=== PATIENT | female | born 1960 | race Caucasian/White ===

== ENCOUNTER → 2023-08-16 09:20 | Outpatient (BNVA) | payer BC, MEDICAID, SELFPAY | PROVIDERS: PCP Nurse Practitioner Family; Referring Provider Nurse Practitioner Family; Visit Provider Orthopaedic Surgery | DX: M54.2 Cervicalgia (principal) | CPT/HCPCS: 72050 ==

== ENCOUNTER → 2023-09-06 11:13 | Outpatient (BNVA) | payer BC, MEDICAID, SELFPAY | PROVIDERS: PCP Nurse Practitioner Family; Visit Provider Orthopaedic Surgery | DX: M47.22 Other spondylosis with radiculopathy, cervical region (principal); Z79.899 Other long term (current) drug therapy | CPT/HCPCS: 36415; 80053; 81003; 85025 ==

== ENCOUNTER → 2023-09-14 11:11 | Outpatient (BNVA) | payer BC, MEDICAID, SELFPAY | PROVIDERS: PCP Nurse Practitioner Family; Visit Provider Family Medicine | DX: Z01.818 Encounter for other preprocedural examination (principal) | CPT/HCPCS: 93005 ==

== ENCOUNTER 2023-10-01 08:42 | Day surgery (SDC) | payer BC, MEDICAID, SELFPAY ==
[2023-10-01] VITALS (14 sets, daily range): BP systolic 107–153; BP diastolic 72–92; PULSE 79–101; RESP 16–18; TEMP 36.1–36.6; O2SAT 92–100; BMI 26.9
[2023-10-01] MEDS: sodium chloride 0.9% 1,000 ML 30 ML IV (09:39)
[2023-10-01 09:45] LABS: Glucose Point of Care 92 mg/dL (70-110)
--- NOTE | 2023-10-01 10:14 | P.ANESASSM_ITS ---
Pre-Anesthetic Assessment Height/Weight: Height 1.73 m Weight 80.286 kg Temp Pulse Resp BP Pulse Ox O2 Del Method 97.8 F 80 17 107/79 96 Room Air 10/01/23 09:10 10/01/23 09:10 10/01/23 09:10 10/01/23 09:10 10/01/23 09:10 10/01/23 09:10 Preop Diagnosis: Cervical spondylosis with radiculopathy Operation Date: 10/01/23 10:25 Proposed Procedures p Anterior Cervical Discectomy & Fusion ACDF w/ Anterior Interbody Fusion w/ Cage w/ Instrumentation w/ Allograft w/ Navigation(Not Applicable) - Owen Green, DO Familial anesthetic complications: mask causes claustrophobia Was Beta Danika taken within 24 hours: N/A Was Clonidine taken within 24 hours: N/A Last intake: Intake Last Liquid Date 09/30/23 Last Liquid Time 23:45 Last Solid Date 09/30/23 Last Solid Time 20:00 Social No alcohol and No tobacco Exam alert, oriented x 3, clear to auscultation bilaterally and regular rate & rhythm Airway Mallampati: Class II Dentition: loose CV/HEM Hypertension, Myocardial Infarction (stent) and Peripheral Vascular Disease Metabolic Diabetes Mellitus and Thyroid Disease Anesthetic Plan ASA status: 3 Anesthesia: General Risk of > 500 ml blood loss (7ml/kg in children): No Medications/Allergies Home Medications Medication Instructions Recorded Confirmed Last Taken Type albuterol (refill) 90 90 mcg inhalation DAILY PRN 08/16/23 09/28/23 Unknown History mcg/actuation aerosol inhaler Shortness Of Breath baclofen 20 mg tablet 20 mg PO DAILY 08/16/23 09/28/23 09/27/23 History bempedoic acid 180 mg tablet 180 mg PO DAILY 08/16/23 09/28/23 10/01/23 History (Nexletol) biotin 10,000 mcg capsule 10,000 mcg PO DAILY 08/16/23 09/28/23 09/30/23 History cholecalciferol (vitamin D3) 25 5,000 unit PO DAILY 08/16/23 09/28/23 09/30/23 History mcg (1,000 unit) capsule dulaglutide 1.5 mg/0.5 mL 1.5 mg SUBCUT .WEEKLY 08/16/23 09/28/23 09/23/23 History subcutaneous pen injector (Trulicity) ezetimibe 10 mg tablet (Zetia) 10 mg PO DAILY 08/16/23 09/28/23 09/28/23 History fluoxetine 20 mg capsule 20 mg PO DAILY 08/16/23 09/28/23 10/01/23 History metoprolol succ 50 1 tab PO DAILY 08/16/23 09/28/23 09/30/23 History mg-hydrochlorothiazide 12.5 mg tablet,ext.rel 24 hr ondansetron 4 mg disintegrating 4 mg PO Q8H PRN Nausea And Vomiting 08/16/23 09/28/23 Unknown History tablet pantoprazole 40 mg tablet,delayed 40 mg PO .QOTHERDAY 08/16/23 09/28/23 09/28/23 History release rivaroxaban 2.5 mg tablet (Xarelto) 2.5 mg PO BID 08/16/23 09/28/23 09/28/23 History thyroid (pork) 60 mg tablet See Rx Instructions .Route .COMPLEX 08/16/23 09/28/23 10/01/23 History trazodone 150 mg tablet 150 mg PO DAILY 08/16/23 09/28/23 09/30/23 History alprazolam 0.25 mg tablet 0.25 mg PO DAILY PRN Anxiety 09/14/23 10/01/23 10/01/23 History furosemide 20 mg tablet 20 mg PO DAILY PRN Edema 09/14/23 10/01/23 09/30/23 History pregabalin 75 mg capsule 75 mg PO DAILY 09/14/23 09/28/23 09/30/23 History aspirin 81 mg tablet 81 mg PO DAILY 09/28/23 09/28/23 09/25/23 History metformin 1,000 mg tablet 1,000 mg PO DAILY 10/01/23 10/01/23 09/30/23 History Allergies Allergy/AdvReac Type Severity Reaction Status Date / Time acetaminophen Allergy ADR-Halluci Verified 09/28/23 10:30 [From Yandy jimenez (hydrocodone-acetamin)] doxycycline Allergy ulcers Verified 09/28/23 10:30 after 17 days on a 21 day script gabapentin Allergy intolerance Verified 09/28/23 10:30 hydrocodone Allergy ADR-Halluci Verified 09/28/23 10:30 [From Yandy jimenez (hydrocodone-acetamin)] insulin aspart Allergy swelling Verified 09/28/23 10:30 insulin glargine Allergy ALGY-Hives Verified 09/28/23 10:30 levothyroxine Allergy intolerance Verified 09/28/23 10:30 linezolid Allergy ulcers in Verified 09/28/23 10:30 mouth Penicillins Allergy doesn't Verified 09/28/23 10:30 work propranolol Allergy ALGY-Hives Verified 09/28/23 10:30 topiramate Allergy swelling Verified 09/28/23 10:30 umeclidinium Allergy ulcers Verified 09/28/23 10:30 vancomycin Allergy ALGY-Redness Verified 10/01/23 09:41 of Skin chlorhexidine gluconate Allergy ALGY-Rash Uncoded 09/28/23 10:30 Current Medications Generic Name Dose Route Start Last Admin Trade Name Freq PRN Reason Stop Dose Admin Sodium Chloride 1,000 mls @ 30 mls/hr 10/01/23 09:00 10/01/23 09:39 Sodium Chloride 0.9% IV 10/02/23 08:59 30 mls/hr .Q24H DONG Administration PFSH Anesthesia Medical History History of diabetes mellitus, type II Hx of primary hypertension Hx of myocardial infarction Arthritis Post-operative hypothyroidism Benign heart murmur PVD (peripheral vascular disease) Hyperlipidemia Iliac artery stenosis, bilateral Tibial artery occlusion, right Blue toe syndrome of right lower extremity Bilateral carotid artery disease Facet arthritis of cervical region Myofascial pain syndrome, cervical Esophageal dysphagia Major depressive disorder Basal cell carcinoma Anemia History of underactive thyroid Social History Quit status (tobacco/nicotine): has quit using Year quit tobacco: 1 year Former quit date comment: september 2022 Second hand smoke exposure: No Alcohol intake: current Alcohol intake frequency: other Alcohol type: other Additional social history: pt has smoked 1 to 1/2 packs of cigarettes for 40 years Data Anesthesia 10/01/23 09:36 Cardiac Studies: 2 No Data to Display
[2023-10-01 10:25] LABS: Alanine Aminotransferase 18 U/L (0-33); Albumin Level 3.7 g/dL (3.5-5.2); Alkaline Phosphatase 58 U/L (35-105); Anion Gap 14.9 (5-19); Aspartate Amino Transferase 20 U/L (0-32); Blood Urea Nitrogen 20 mg/dL (8-23); Carbon Dioxide 23 mmol/L (22-29); Chloride 107 mmol/L (98-107); Globulin 3.2 g/dL (1.3-4.6); Glomerular Filtration Rate 50.5 mL/min (90-130); Glucose 93 mg/dL (65-115); Osmolality Calculated 292 mOsm/kg (285-295); Potassium 4.9 mmol/L (3.5-5.1); Sodium 140 mmol/L (136-145); Total Bilirubin 0.4 mg/dL (0.15-1.2); Total Protein 6.9 g/dL (6.6-8.7)
--- NOTE | 2023-10-01 12:00 | W.PM.OPSUD ---
Surgery/Procedure H&P Update DATE OF PROCEDURE: October 01, 2023 DATE H&P PERFORMED: 09/14/23 H&P UPDATE INFORMATION: I have reviewed H&P completed within last 30 days, I have examined patient prior to procedure and No changes to prior documentation PREOP DIAGNOSIS: Cervical spondylosis with radiculopathy PLANNED PROCEDURE: Operation Date: 10/01/23 10:25 Proposed Procedures p Anterior Cervical Discectomy & Fusion ACDF w/ Anterior Interbody Fusion w/ Cage w/ Instrumentation w/ Allograft w/ Navigation(Not Applicable) - Owen Green DO
[2023-10-01] MEDS: clindamycin 600 MG/50 ML PREMIX 100 MG IV (12:20)
[2023-10-01] MEDS: lidocaine-epi 1% 20 mL INJ INJECTION (13:15)
[2023-10-01 13:58] LABS: Glucose Point of Care 103 mg/dL (70-110)
[2023-10-01] MEDS: HYDROmorphone 1 mg/mL INJ 1 mL 0.5 MG IVP (13:58)
--- NOTE | 2023-10-01 14:03 | PM.OP ---
Operative Report Date of procedure: October 01, 2023 Pre-op diagnosis: Cervical spondylosis with radiculopathy Post-op diagnosis: same Procedure done: 1. Anterior diskectomy C3/4 2. Insertion of cage C3/4 3. Instrumentation with anterior plate from C3-C4 4. Use of allograft Surgeon: Owen Green DO Estimated blood loss (mL): 20 Procedure: 1. Anterior diskectomy C3/4 2. Insertion of cage C3/4 3. Instrumentation with anterior plate from C3-C4 4. Use of allograft The patient was taken to the operating room, where he underwent general endotracheal anesthesia without complications. He was then positioned supine on the operating table, and all areas of impingement were well padded. The arms were carefully padded and tucked at his sides. A roll was placed between the shoulder blades.. An x-ray was done to determine the appropriate level for the skin incision. The entire neck was then sterilely prepped and draped in the usual fashion. Neuromonitoring was attached prior to prepping. A transverse skin incision was made and carried down to the platysma muscle. This was then split in line with its fibers. Blunt dissection was carried down medial to the carotid sheath and lateral to the trachea and esophagus until the anterior cervical spine was visualized. A needle was placed into a disc and an x-ray was done to determine its location. The longus colli muscles were then elevated bilaterally with the electrocautery unit. Self-retaining retractors were placed deep to the longus colli muscle. Attention was brought to the C3-4 level that was confirmed on x-ray. A caspar pin was placed into the C3 vertebrae and the C4 vertebrae. The disk space was then distracted. The microscope was then brought in. A radical anterior discectomies were performed at C 3/4. This included complete removal of the anterior annulus, nucleus, and posterior annulus. The posterior longitudinal ligament was removed as were the posterior osteophytes. Foraminotomies were then accomplished bilaterally. This was done using a high speed abel, kerrison rongeurs and curretes Once all of this was accomplished, the curved currette was used to check for any residual compression. The central canal was wide open as were the foramen. A high-speed bur was used to remove the cartilaginous endplates above and below the interspace. Bleeding cancellous bone was exposed. The disc space were measured and appropriate size cage were placed sterilely onto the field. Allograft graft was packed into the cages. The cage was then placed and there was good juxtaposition against the bleeding decorticated surfaces and good distraction of each interspace. The [place] pins were removed. Bone wax was used to prevent any bleeding from occurring at the pin sites. The appropriate size anterior cervical locking plate was chosen and bent into gentle lordosis. Two screws were then placed into each of the vertebral bodies at C3 and C4. There was excellent purchase. A final x-ray was done confirming good position of the hardware and Cages. The locking screws were then applied, also with excellent purchase. Following a final copious irrigation, there was good hemostasis and no dural leaks. The carotid pulse was strong. The wounds were then closed in layers using 2-0 Vicryl suture for the platysma muscle, 2-0 Vicryl suture for the subcutaneous tissue, and 4-0 monocryl suture in a subcuticular skin closure. Glue was placed followed by application of a sterile dressing. The drain was hooked to bulb suction. A soft collar was applied. The patient was then carefully returned to the supine position on his hospital bed where he was reversed and extubated and taken to the recovery room having tolerated the procedure well.
--- NOTE | 2023-10-01 14:18 | XR_ITS ---
WS: [id number] C-ARM RADIOGRAPHS CERVICAL SPINE; 2 IMAGES HISTORY: OR PICS COMPARISON: None available. Intraoperative imaging during anterior cervical fusion at C3-4. There is an interbody spacer at C3-4. Patient is intubated. XR/XR cervical spine 3V* [id number] IMPRESSION: Intraoperative imaging during cervical fusion.
--- NOTE | 2023-10-01 15:25 | ANE.PACU2 ---
Inpatient post-anesthesia follow up: Airway intact: Yes Vital signs: Temperature 97.9 F Pulse Rate 85 Respiratory Rate 17 Blood Pressure 136/75 Pulse Oximetry 96 Oxygen Delivery Me thod Room Air Oxygen Flow Rate 6 Fraction of Inspir ed Oxygen Hydration adequate: Yes Nausea and vomiting: No Pain level: 1 Mental status: Baseline
== END 2023-10-01 15:25 | disposition home or self-care (01) ==
PROVIDERS: PCP Nurse Practitioner Family; Visit Provider Orthopaedic Surgery
PROC: 0RB30ZZ Excision of Cervical Vertebral Disc, Open Approach (ICD-10-PCS; CPT 22551; principal; 2023-10-01 10:25)
DX: M47.22 Other spondylosis with radiculopathy, cervical region (principal); I10 Essential (primary) hypertension; I25.2 Old myocardial infarction; Z95.5 Presence of coronary angioplasty implant and graft; E11.9 Type 2 diabetes mellitus without complications; Z79.82 Long term (current) use of aspirin; Z79.84 Long term (current) use of oral hypoglycemic drugs; Z87.891 Personal history of nicotine dependence
CPT/HCPCS: 20930; 22551; 22845; 22853; 36415; 36416; 72040; 76000; 80053; 82962; C1713; C1763; C9359; J0131; J0330; J1100; J1170; J1200; J2250; J2405; J2704; J3010; J3490; J7030

== ENCOUNTER 2023-10-05 16:43 | Emergency (ER) | payer BC, MEDICAID, SELFPAY ==
[2023-10-05 16:47] VITALS: BP 123/73; PULSE 79; RESP 16; TEMP 36.9; O2SAT 96; BMI 25.8
--- NOTE | 2023-10-05 18:29 | W.ED.NECK ---
HPI - Neck Pain/Injury General: Chief Complaint: General Medical Stated Complaint: trouble swallowing Time Seen by Provider: 10/05/23 18:22 Source: patient Mode of arrival: ambulatory Limitations: no limitations History of Present Illness: Patient is a 63-year-old female who presents to the ED today with a complaint of neck pain and dysphagia following an anterior approach cervical surgery by Dr. Green. Date of service was 09/30. Procedure performed was as follows: Procedure done: 1. Anterior diskectomy C3/4 2. Insertion of cage C3/4 3. Instrumentation with anterior plate from C3-C4 4. Use of allograft Patient states she is having trouble swallowing and feels like her food gets stuck. She is able to take her home medications one by one . She is able to swallow water. No fevers. Feels like her Steri-Strips are itchy and irritating her. MD complaint: neck pain Onset (ago): day(s) Severity: moderate Relieving factors: none Exacerbating factors: none Context: other (Recent surgery) Associated symptoms: Reports dysphagia Treatments prior to arrival: prescription analgesic Review of Systems Const: Denies: fever(s), chills, body aches, fatigue or malaise Card: Denies: chest pain Resp: Denies: dyspnea GI: Reports: dysphagia; Denies: abdominal pain, vomiting, hematemesis or heartburn Musc: Reports: neck pain Neuro: Denies: numbness in extremities, weakness in extremities or sensory changes [facility] ED PFSH: Medical History History of diabetes mellitus, type II Hx of primary hypertension Hx of myocardial infarction Arthritis Post-operative hypothyroidism Benign heart murmur PVD (peripheral vascular disease) Hyperlipidemia Iliac artery stenosis, bilateral Tibial artery occlusion, right Blue toe syndrome of right lower extremity Bilateral carotid artery disease Facet arthritis of cervical region Myofascial pain syndrome, cervical Esophageal dysphagia Major depressive disorder Basal cell carcinoma Anemia History of underactive thyroid Social History Quit status (tobacco/nicotine): has quit using Year quit tobacco: 1 year Former quit date comment: september 2022 Second hand smoke exposure: No Alcohol intake: current Alcohol intake frequency: other Alcohol type: other Additional social history: pt has smoked 1 to 1/2 packs of cigarettes for 40 years Physical Exam Const: COMMON NORMALS: no acute distress, average body habitus, no limitations, healthy appearing, alert and well nourished Neck/C-Spine: OTHER: ROM not performed secondary to recent surgery; surgical incision with intact steri-strips appears clean Resp: COMMON NORMALS: normal respiratory effort and clear to auscultation bilaterally AUSCULTATION: clear to auscultation bilaterally Cardio: COMMON NORMALS: regular rate and regular rhythm RATE: regular rate RHYTHM: regular rhythm Extremity: GENERAL: Yes normal exam except as noted Neuro: COMMON NORMALS: moves all extremities, no focal motor deficits and no sensory deficits noted SENSORIUM/ORIENTATION: Yes alert Course Vital Signs: Vital signs: Vital Signs Temperature 98.5 F 10/05/23 16:47 Pulse Rate 79 10/05/23 16:47 Respiratory Rate 16 10/05/23 16:47 Blood Pressure 123/73 10/05/23 16:47 Pulse Oximetry 96 10/05/23 16:47 Oxygen Delivery Me thod Room Air 10/05/23 16:47 MDM - Neck Pain/Injury Medical Decision Making Patient here with dysphagia following an anterior approach discectomy by Dr. Green approximately 4 days ago. Symptoms clinically sound normal for postoperative.. CT imaging was obtained to rule out other etiologies. CT of her neck showing postop changes. She was given IV dexamethasone here and I will place her on dexamethasone over the next couple of days at home to help with the edema. She was recommended to continue extremely soft food diet and liquids and can advance as tolerated. Recommend follow-up with Dr. Green as scheduled. Return to ED precautions given. Medical Records I reviewed the patient's medical records. Lab Data I reviewed the patient's lab results. 10/05/23 19:00 10/05/23 19:[address] 10/05/23 18:32 IMPRESSION: 1. Postoperative changes status post recent C3-C4 ACDF with prevertebral edema and unorganized fluid. Close surgical follow-up is recommended. Laboratory Results WBC 9.59 10^3/uL (3.29-11.43) 10/05/23 19:00 RBC 4.13 10^6/uL (3.85-5.65) 10/05/23 19:00 Hgb 11.30 g/dL (11.27-16.99) 10/05/23 19:00 Hct 35.4 % (36-47) L 10/05/23 19: MCV 85.7 fl (85-98) 10/05/23 19: MCH 27.4 pg (27-33) 10/05/23 19: MCHC 31.9 g/dL (30-55) 10/05/23 19:00 RDW 13.5 % (12.1-15.1) 10/05/23 19: Plt Count 232 10^3/cmm (157-399) 10/05/23 19: MPV 9.2 fL (7.4-10.4) 10/05/23 19:00 Neut % (Auto) 58.0 % 10/05/23 19: Lymph % (Auto) 30.7 % 10/05/23 19: Meigs % (Auto) 8.8 % 10/05/23 19:00 Eos % (Auto) 2.0 % 10/05/23 19: Baso % (Auto) 0.3 % 10/05/23 19: Neut # (Auto) 5.57 10^3/uL (1.8-7.7) 10/05/23 19:00 Lymph # (Auto) 2.9 10^3/uL (0.8-4.8) 10/05/23 19: Meigs # (Auto) 0.8 10^3/uL (0.2-0.9) 10/05/23 19:00 Eos # (Auto) 0.2 10^3/uL (0.0-0.8) 10/05/23 19:00 Baso # (Auto) 0.0 10^3/uL (0.0-0.1) 10/05/23 19:00 Nucleated RBC % (auto) 0 % 10/05/23 19: Nucleated RBCs # 0.0 /100WBC 10/05/23 19:00 Sodium 140 mmol/L (136-145) 10/05/23 19:00 Potassium 4.7 mmol/L (3.5-5.1) 10/05/23 19:00 Chloride 104 mmol/L (98-107) 10/05/23 19:00 Carbon Dioxide 24 mmol/L (22-29) 10/05/23 19:00 Anion Gap 16.7 (5-19) 10/05/23 19:00 BUN 19 mg/dL (8-23) 10/05/23 19:00 Creatinine 1.0 mg/dL (0.5-0.9) H 10/05/23 19:00 GFR Calculation 56.4 mL/min (90-130) L 10/05/23 19:00 Glucose 101 mg/dL (65-115) 10/05/23 19:00 Calculated Osmolality 292 mOsm/kg (285-295) 10/05/23 19:00 Calcium 9.0 mg/dL (8.5-10.5) 10/05/23 19:00 Total Bilirubin 0.7 mg/dL (0.15-1.2) 10/05/23 19:00 AST 19 U/L (0-32) 10/05/23 19:00 ALT 19 U/L (0-33) 10/05/23 19:00 Alkaline Phosphatase 73 U/L (35-105) 10/05/23 19:00 Total Protein 7.2 g/dL (6.6-8.7) 10/05/23 19:00 Albumin 3.9 g/dL (3.5-5.2) 10/05/23 19:00 Globulin 3.3 g/dL (1.3-4.6) 10/05/23 19:00 All radiology interpretation(s) finalized by discharge Discharge Plan Discharge Patient Disposition: Home Clinical Impression: Status post cervical discectomy Dysphagia Qualifiers: Dysphagia type: unspecified Qualified Code(s): R13.10 - Dysphagia, unspecified Condition: Stable Prescriptions: New dexamethasone 6 mg tablet 6 mg PO DAILY Qty: 4 0RF No Action furosemide 20 mg tablet 20 mg PO DAILY PRN (Reason: Edema) pregabalin 75 mg capsule 75 mg PO DAILY trazodone 150 mg tablet 150 mg PO DAILY baclofen 20 mg tablet 20 mg PO DAILY ondansetron 4 mg tablet,disintegrating 4 mg PO Q8H PRN (Reason: Nausea And Vomiting) Nexletol 180 mg tablet 180 mg PO DAILY Xarelto 2.5 mg tablet 2.5 mg PO BID thyroid (pork) 60 mg tablet See Rx Instructions .ROUTE .COMPLEX Rx Instructions: 90mg in the am and 60 mg in afternoon pantoprazole 40 mg tablet,delayed release (DR/EC) 40 mg PO .QOTHERDAY metoprolol webb-hydrochlorothiaz 50-12.5 mg tablet extended release 24 hr 1 tab PO DAILY fluoxetine 20 mg capsule 20 mg PO DAILY ezetimibe [Zetia] 10 mg tablet 10 mg PO DAILY Trulicity 1.5 mg/0.5 mL pen injector 1.5 mg SUBCUT .WEEKLY biotin 10,000 mcg capsule 10,000 mcg PO DAILY albuterol (refill) 90 mcg/actuation aerosol 90 mcg inhalation DAILY PRN (Reason: Shortness Of Breath) cholecalciferol (vitamin D3) 25 mcg (1,000 unit) capsule 5,000 unit PO DAILY alprazolam 0.25 mg tablet 0.25 mg PO DAILY PRN (Reason: Anxiety) aspirin 81 mg Tablet 81 mg PO DAILY Hold Instructions: Resume on 10/03/23. metformin 1,000 mg Tablet 1,000 mg PO DAILY oxycodone 5 mg tablet 5 mg PO Q4H PRN (Reason: pain) 7 Days Qty: 40 0RF Discharge Orders: Discharge ED (Routine); Ordered 10/05/23 Ordered By: Cristy Rios Referrals: Layla Valles [Primary Care Provider] - Coding Level of Care Code ED Director [employer] for Nathan Montejo
--- NOTE | 2023-10-05 18:32 | CTR_ITS ---
PROCEDURE INFORMATION: Exam: CT Neck With Contrast Exam date and time: 10/05/2023 7:07 PM Age: 63 years old Clinical indication: Dysphagia / difficulty swallowing; Prior surgery; Surgery date: 3-7 days post-operative; Surgery type: Anterior cervical fusion 10/01/2023; Patient HX: C/O worsening throat pain and dysphagia since anterior cervical fusion on 10/01/2023. ; Additional info: Recent cervical discectomy; Dysphagia/edema TECHNIQUE: Imaging protocol: Computed tomography of the neck with contrast. Radiation optimization: All CT scans at this facility use at least one of these dose optimization techniques: automated exposure control; mA and/or kV adjustment per patient size (includes targeted exams where dose is matched to clinical indication); or iterative reconstruction. Contrast material: OMNI 350; Contrast volume: 80 ml; Contrast route: INTRAVENOUS (IV); COMPARISON: MR cervical spin wo con* [id number] 03/28/2022 10:47 AM RADIATION DOSE METRICS: Total DLP (mGy-cm): 242.04 FINDINGS: Prevertebral and retropharyngeal spaces: Postsurgical changes compatible with recent C3-C4 ACDF without gross evidence of hardware complication. 1 mm anterolisthesis of C4 on C5. No evidence of fracture or subluxation of the cervical spine. There is extensive prevertebral and retropharyngeal edema without a discrete fluid collection. There is an approximately 1.5 cm focus of unorganized fluid in the right paramedian prevertebral soft tissues (for example, image 47 of series 11). Edema extends into the right lateral aspect of the neck along the lateral aspect of the thyroid cartilage. Pharynx: The nasopharynx, oropharynx and hypopharynx are grossly unremarkable. Larynx: The aryepiglottic folds, glottis and paraglottic soft tissues are grossly unremarkable. Salivary glands: The parotid and submandibular glands are unremarkable. Thyroid: Multiple clips in the thyroid bed suggesting prior thyroidectomy. Lymph nodes: No evidence of adenopathy. Trachea: The visualized upper airway is patent. Lungs: The visualized lung apices are clear. Vasculature: The origins of the great vessels are patent. The visualized aortic arch is unremarkable. The visualized carotid and vertebral arteries are grossly patent. There is moderate approximately 50% stenosis of the proximal left internal carotid artery secondary to densely calcified atherosclerotic plaque. The visualized internal jugular veins are patent without evidence of thrombosis. CT/CT neck w con* [id number] IMPRESSION: 1. Postoperative changes status post recent C3-C4 ACDF with prevertebral edema and unorganized fluid. Close surgical follow-up is recommended.
[2023-10-05] MEDS: iohexol 350 mg/mL 500 mL Btl (per mL) IV (19:07)
[2023-10-05 19:16] LABS: Basophils % 0.3 %; Eosinophils # 0.2 10^3/uL (0.0-0.8); Hematocrit 35.4 % (36-47); Lymphocytes # 2.9 10^3/uL (0.8-4.8); Lymphocytes % 30.7 %; Mean Corpuscular HGB Conc 31.9 g/dL (30-55); Mean Corpuscular Hemoglobin 27.4 pg (27-33); Mean Corpuscular Volume 85.7 fl (85-98); Mean Platelet Volume 9.2 fL (7.4-10.4); Monocytes # 0.8 10^3/uL (0.2-0.9); Monocytes % 8.8 %; Neutrophils # 5.57 10^3/uL (1.8-7.7); Nucleated Red Blood Cells % 0 %; Platelet Count 232 10^3/cmm (157-399); Red Blood Count 4.13 10^6/uL (3.85-5.65); Red Cell Distribution Width 13.5 % (12.1-15.1); White Blood Count 9.59 10^3/uL (3.29-11.43)
[2023-10-05 19:26] LABS: Alanine Aminotransferase 19 U/L (0-33); Albumin Level 3.9 g/dL (3.5-5.2); Alkaline Phosphatase 73 U/L (35-105); Anion Gap 16.7 (5-19); Aspartate Amino Transferase 19 U/L (0-32); Blood Urea Nitrogen 19 mg/dL (8-23); Carbon Dioxide 24 mmol/L (22-29); Chloride 104 mmol/L (98-107); Creatinine Clr Calc Pharmacy 64.5241; Globulin 3.3 g/dL (1.3-4.6); Glomerular Filtration Rate 56.4 mL/min (90-130); Glucose 101 mg/dL (65-115); Osmolality Calculated 292 mOsm/kg (285-295); Potassium 4.7 mmol/L (3.5-5.1); Sodium 140 mmol/L (136-145); Total Bilirubin 0.7 mg/dL (0.15-1.2); Total Protein 7.2 g/dL (6.6-8.7)
[2023-10-05] MEDS: dexamethasone 10 mg/mL INJ IVP (19:34)
[2023-10-05] MEDS: sodium chloride 0.9% 1,000 ML 999 ML IV (20:22)
[2023-10-05 21:36] VITALS: PULSE 80; RESP 16; O2SAT 96
== END 2023-10-05 21:18 | disposition home or self-care (01) ==
PROVIDERS: Emergency Provider Physician Assistant; PCP Nurse Practitioner Family
DX: R13.10 Dysphagia, unspecified (principal); Z98.890 Other specified postprocedural states; Z79.85 Long-term (current) use of injectable non-insulin antidiabetic drugs; Z79.82 Long term (current) use of aspirin; Z79.84 Long term (current) use of oral hypoglycemic drugs; Z87.891 Personal history of nicotine dependence; E11.9 Type 2 diabetes mellitus without complications; I25.2 Old myocardial infarction; E78.5 Hyperlipidemia, unspecified
CPT/HCPCS: 70491; 80053; 85025; 96374; 99285; J1100; J7030; Q9967

== ENCOUNTER → 2023-10-09 09:01 | Outpatient (BNVA) | payer BC, MEDICAID, SELFPAY | PROVIDERS: PCP Nurse Practitioner Family; Visit Provider Physician Assistant | DX: M25.511 Pain in right shoulder (principal); M25.512 Pain in left shoulder; M75.42 Impingement syndrome of left shoulder; M75.32 Calcific tendinitis of left shoulder | CPT/HCPCS: 73030 ==

== ENCOUNTER → 2023-10-30 13:21 | Outpatient (BNVA) | payer BC, MEDICAID, SELFPAY | PROVIDERS: PCP Nurse Practitioner Family; Visit Provider Orthopaedic Surgery | DX: Z98.1 Arthrodesis status (principal) | CPT/HCPCS: 72040 ==

== ENCOUNTER 2023-10-31 08:57 | Outpatient (CLI) | payer BC, MEDICAID, SELFPAY ==
--- NOTE | 2023-10-31 09:30 | MR_ITS ---
WS: [id number] MRI LEFT SHOULDER NONCONTRAST TECHNIQUE: Sagittal T2, coronal T1, T2 and proton density imaging. Axial gradient PDE imaging. CLINICAL INFORMATION: left rotator cuff impingement COMPARISON: None. FINDINGS: Some images are degraded by patient motion. Moderate arthritis AC joint with edema. Moderate downsloping acromion with impingement on the distal supraspinatus. Chronic thinning of the distal supraspinatus. Tendinopathy distal supraspinatus. Adrienne l infraspinatus. Normal teres minor. Normal subscapularis. Small biceps tendon appears intact within the bicipital groove. Advanced degenerative narrowing of th e glenohumeral articulation. Biceps labral anchor appears intact. Tiny intra-articular biceps tendon. No acute fractures. No bone marrow edema in the humerus or glenoid. MR/MR shoulder LT wo con* [id number] IMPRESSION: Images are somewhat limited due to motion 1. Moderate arthritis AC joint with mild downsloping acromion. Impingement dis leda supraspinatus. Chronic thinning of the supraspinatus with tendinopathy. 2. Rotator cuff is otherwise intact. 3. Small biceps tendon appears intact within the bicipital groove. Tiny intra- articular biceps tendon. 4. Advanced degenerative narrowing of the glenohumeral articulation. 5. No bone marrow edema in the humerus or glenoid.
== END 2023-10-31 08:58 | disposition home or self-care (01) ==
LOC: RAD 08:58
PROVIDERS: PCP Nurse Practitioner Family; Visit Provider Physician Assistant
DX: M75.42 Impingement syndrome of left shoulder (principal); M19.012 Primary osteoarthritis, left shoulder; M75.92 Shoulder lesion, unspecified, left shoulder
CPT/HCPCS: 73221

== ENCOUNTER → 2023-11-22 09:06 | Outpatient (BNVA) | payer BC, MEDICAID, SELFPAY | PROVIDERS: PCP Nurse Practitioner Family; Visit Provider Orthopaedic Surgery | DX: Z98.1 Arthrodesis status (principal); M47.22 Other spondylosis with radiculopathy, cervical region | CPT/HCPCS: 72040 ==

== ENCOUNTER 2023-11-28 05:34 | Day surgery (SDC) | payer BC, MEDICAID, SELFPAY ==
[2023-11-28] VITALS (12 sets, daily range): BP systolic 100–174; BP diastolic 60–125; PULSE 80–109; RESP 16–26; TEMP 36.2–36.6; O2SAT 94–99
[2023-11-28] MEDS: sodium chloride 0.9% 1,000 ML 30 ML IV (06:17)
[2023-11-28] MEDS: acetaminophen 1,000 MG/100 ML PIGGYBACK 400 MG IV (06:21)
[2023-11-28 06:27] LABS: Glucose Point of Care 87 mg/dL (70-110)
[2023-11-28] MEDS: ketorolac 30 mg/mL INJ IVP (06:27)
--- NOTE | 2023-11-28 06:53 | P.ANESASSM_ITS ---
Pre-Anesthetic Assessment Height/Weight: Height 1.73 m Weight 81.647 kg Temp Pulse Resp BP Pulse Ox O2 Del Method 97.7 F 80 16 156/60 96 Room Air 11/28/23 06:03 11/28/23 06:03 11/28/23 06:03 11/28/23 06:03 11/28/23 06:03 11/28/23 06:03 Operation Date: 11/28/23 07:00 Proposed Procedures p Shoulder Arthroscopy(Left) - Aldair Ag, DO s Subacromial Decompression(Left) - Aldair Hinds, DO s AC Joint Resection(Left) - Aldair Ag, DO Familial anesthetic complications: Sore throat and PONV post-op Was Beta Danika taken within 24 hours: N/A Was Clonidine taken within 24 hours: N/A Last intake: Intake Last Liquid Date 11/27/23 Last Liquid Time 23:45 Last Solid Date 11/27/23 Last Solid Time 19:00 Social Tobacco and No alcohol Exam alert, oriented x 3, clear to auscultation bilaterally and regular rate & rhythm Airway Mallampati: Class II Dentition: loose CV/HEM Coronary Artery Disease, Hypertension and Myocardial Infarction Metabolic Diabetes Mellitus and Thyroid Disease Neuropsych RAFFY Anesthetic Plan ASA status: 4 Anesthesia: General and Regional (specify below) Risk of > 500 ml blood loss (7ml/kg in children): No Medications/Allergies Home Medications Medication Instructions Recorded Confirmed Last Taken Type albuterol (refill) 90 90 mcg inhalation DAILY PRN 08/16/23 11/27/23 09/05/23 History mcg/actuation aerosol inhaler Shortness Of Breath baclofen 20 mg tablet 20 mg PO BEDTIME 08/16/23 11/28/23 11/27/23 History bempedoic acid 180 mg tablet 180 mg PO DAILY 08/16/23 11/27/23 11/27/23 History (Nexletol) biotin 10,000 mcg capsule 10,000 mcg PO BEDTIME 08/16/23 11/28/23 11/27/23 History cholecalciferol (vitamin D3) 25 5,000 unit PO BEDTIME 08/16/23 11/27/23 11/26/23 History mcg (1,000 unit) capsule ezetimibe 10 mg tablet (Zetia) 10 mg PO BEDTIME 08/16/23 11/27/23 11/26/23 History fluoxetine 20 mg capsule 40 mg PO DAILY 08/16/23 11/27/23 11/27/23 History ondansetron 4 mg disintegrating 4 mg PO Q8H PRN Nausea And Vomiting 08/16/23 11/27/23 Unknown History tablet rivaroxaban 2.5 mg tablet (Xarelto) 2.5 mg PO BID 08/16/23 11/27/23 11/25/23 11:30 History furosemide 20 mg tablet 20 mg PO DAILY PRN Edema 09/14/23 11/27/23 11/24/23 History naloxone 4 mg/actuation nasal 4 mg intranasal 2XD PRN opoid 10/09/23 11/27/23 Unknown History spray (Narcan) overdose dicyclomine 10 mg capsule 10 mg PO QID PRN stomach pain 10/30/23 11/27/23 11/11/23 History oxycodone 5 mg tablet 5 mg PO Q4H PRN pain 7 days #40 10/30/23 11/27/23 Unknown Rx tabs pantoprazole 40 mg tablet,delayed 20 mg PO BEDTIME 10/30/23 11/28/23 11/27/23 History release dulaglutide 0.75 mg/0.5 mL 0.75 mg SUBCUT DIRECTED 11/08/23 11/27/23 11/18/23 History subcutaneous pen injector (Trulicity) hydroxyzine HCl 10 mg tablet 10 mg PO QID anxiety 11/08/23 11/27/23 Unknown History metoprolol succinate 50 mg 50 mg PO BEDTIME BP 11/08/23 11/28/23 11/27/23 History tablet,extended release 24 hr pregabalin 100 mg capsule 100 mg PO BEDTIME 11/08/23 11/28/23 11/27/23 History blood sugar diagnostic (Blood #50 ea 11/19/23 11/22/23 Unknown Rx Glucose Test strips) blood-glucose meter (Blood Glucose #1 ea 11/19/23 11/22/23 Unknown Rx Monitoring kit) trazodone 150 mg tablet 100 mg PO BEDTIME PRN Insomnia 11/21/23 11/27/23 Unknown History thyroid (pork) 90 mg tablet 90 mg PO DAILY #30 tabs 11/22/23 11/27/23 11/27/23 Rx metformin 1,000 mg tablet 1,000 mg PO BEDTIME 11/27/23 11/27/23 11/26/23 History thyroid (pork) 30 mg tablet 30 mg PO QPM 11/27/23 11/28/23 11/27/23 History Allergies Allergy/AdvReac Type Severity Reaction Status Date / Time acetaminophen Allergy ADR-Halluci Verified 11/22/23 09:09 [From [employer] (hydrocodone-acetamin)] doxycycline Allergy ulcers Verified 11/22/23 09:09 after 17 days on a 21 day script gabapentin Allergy intolerance Verified 11/22/23 09:09 hydrocodone Allergy ADR-Halluci Verified 11/22/23 09:09 [From [employer] (hydrocodone-acetamin)] insulin aspart Allergy swelling Verified 11/22/23 09:09 insulin glargine Allergy ALGY-Hives Verified 11/22/23 09:09 levothyroxine Allergy intolerance Verified 11/22/23 09:09 linezolid Allergy ulcers in Verified 11/22/23 09:09 mouth Penicillins Allergy doesn't Verified 11/22/23 09:09 work propranolol Allergy ALGY-Hives Verified 11/22/23 09:09 topiramate Allergy swelling Verified 11/22/23 09:09 umeclidinium Allergy ulcers Verified 11/22/23 09:09 vancomycin Allergy ALGY-Redness Verified 11/22/23 09:09 of Skin chlorhexidine gluconate Allergy ALGY-Rash Uncoded 11/22/23 09:09 Current Medications Generic Name Dose Route Start Last Admin Trade Name Freq PRN Reason Stop Dose Admin Sodium Chloride 1,000 mls @ 30 mls/hr 11/28/23 05:45 11/28/23 06:17 Sodium Chloride 0.9% IV 11/29/23 05:44 30 mls/hr .Q24H DONG Administration PFSH Anesthesia Medical History Tobacco abuse History of diabetes mellitus, type II Hx of primary hypertension Hx of myocardial infarction Arthritis Post-operative hypothyroidism Benign heart murmur PVD (peripheral vascular disease) Hyperlipidemia Iliac artery stenosis, bilateral Tibial artery occlusion, right Blue toe syndrome of right lower extremity Bilateral carotid artery disease Facet arthritis of cervical region Myofascial pain syndrome, cervical Esophageal dysphagia Major depressive disorder Basal cell carcinoma Anemia History of underactive thyroid Family History Father CAD (coronary artery disease) Cancer Hypertension Sister Cancer Mother Diabetes Brother Diabetes Social History Smoking and tobacco/nicotine status: current every day tobacco/nicotine user Quit status (tobacco/nicotine): has quit using Year quit tobacco: 1 year Former quit date comment: september 2022 Second hand smoke exposure: No Alcohol intake: current Alcohol intake frequency: holidays/special occasions only Alcohol type: other Additional social history: pt has smoked 1 to 1/2 packs of cigarettes for 40 years Household members: none Housing: House Marital status: Legally Number of children: 2 Pets and animals: Yes Pets & animals: dog(s) Data Anesthesia Cardiac Studies: No Data to Display
--- NOTE | 2023-11-28 06:55 | ANES.PROC ---
Anesthesia Procedures Procedure/Date: 11/28/23 Nerve Block ^: Nerve Block 1: Main Anesthesia: general anesthesia Time Out Performed: Yes Consent: requested by attending/covering physician, from patient, from other, risks and benefits reviewed and patient agrees to proceed Nerve block location: interscalene (L) Anesthesia monitors applied: pulse oximetry, EKG, BP cuff and oxygen Nerve block position: semi sitting Anesthetic Used: ropivicaine 0.5% (16 c) and with decadron (4 mg) Ultrasound used to: recognize landmarks, visualize and ID brachial plexus, in supraclavicular region and visualize and ID interscalene groove Interscalene/Femoral BLK: 2 stimuplex 22 g needle used for position and inplane approach, visualize local anesthetic spread and no vascular puncture identified Patient Tolerated Procedure: well Complications: none
--- NOTE | 2023-11-28 06:56 | P.HPUD_ITS ---
Surgery/Procedure H&P Update DATE OF PROCEDURE: November 28, 2023 DATE H&P PERFORMED: 11/01/23 H&P UPDATE INFORMATION: I have reviewed H&P completed within last 30 days, I have examined patient prior to procedure and No changes to prior documentation CHANGES TO PREVIOUS DOCUMENTATION: Patient seen Dr. Dr. Green her spine surgeon who has okayed her to proceed with surgical intervention for the left shoulder given she is status post cervical s phoebe fusion. PREOP DIAGNOSIS: Left shoulder subacromial impingement and AC joint arthritis PRIMARY INDICATION FOR PROCEDURE: Left shoulder subacromial impingement and AC joint arthritis PLANNED PROCEDURE: Operation Date: 11/28/23 07:00 Proposed Procedures p Shoulder Arthroscopy(Left) - Aldair Luong, DO s Subacromial Decompression(Left) - Aldair Luong, s AC Joint Resection(Left) - Aldair Luong, DO
[2023-11-28] MEDS: ceFAZolin 2,000 MG in sodium chloride 0.9% (plus) 50 ML 100 MG IV (07:00)
--- NOTE | 2023-11-28 08:31 | W.PM.BPON ---
Date of Procedure: 11/27/2023 Surgeon: Aldair Luong DO [id number] Program[employer] Analyst(s): Honorio Luong PA-C Procedure(s) performed: . Left shoulder diagnostic and surgical arthroscopy with biceps tenodesis Left shoulder diagnostic and surgical arthroscopy with labral debridement Left shoulder diagnostic and surgical arthroscopy with subacromial decompression (acromioplasty and bursectomy) Left shoulder diagnostic and surgical arthroscopy with AC joint resection (distal clavicle excision) Findings of the procedure(s): Patient was found to have a unstable bicep tendon anchor and underwent bicep tenodesis, she was found to have an intact rotator cuff patient had circumferential fraying of the labrum and underwent debridement of this and then she subsequent underwent procedure as planned for a subacromial decompression and AC joint resection. Patient tolerated procedure without issues or complications taken to PACU stable condition Estimated blood loss: 5 mL Specimen(s) removed: None Post-operative diagnosis: Left shoulder biceps SLAP tear/unstable bicep tendon anchor, AC joint arthritis, labral fraying, subacromial impingement
--- NOTE | 2023-11-28 08:33 | P.OP_ITS ---
Operative Report Date of procedure: November 28, 2023 Surgeon: Aldair Luong DO [employer] Processor: Honorio Luong PA-C: PA was necessary for assistance in this case with shoulder positioning to execute the procedure, assistance with instrumentation, as well as implant fixation when necessary, assist with wound closure and dressing application. Procedure: Preoperative diagnosis: Left shoulder subacromial impingement and AC joint arthritis Post-op diagnosis:? Left shoulder biceps SLAP tear/unstable bicep tendon anchor, AC joint arthritis, labral fraying, subacromial impingement Procedure done: Left shoulder diagnostic and surgical arthroscopy with biceps tenodesis Left shoulder diagnostic and surgical arthroscopy with labral debridement Left shoulder diagnostic and surgical arthroscopy with subacromial decompression (acromioplasty and bursectomy) Left shoulder diagnostic and surgical arthroscopy with AC joint resection (distal clavicle excision) Surgeon: Aldair Luong DO Estimated blood loss: [ 5]mL IV fluids: See anesthesia record Implants: Arthrex 2.9 loop and tack biceps tenodesis implant system Complications: None Condition: stable Disposition: same day Brief History: Patient been seen and worked up in the outpatient setting for Left?shoulder?pain.? Pt had an MRI which showed findings below.? Patient's failed conservative treatment and has weakness.? We talked about treatment options far as nonoperative and operative intervention..? We talked about risk benefits complication alternatives surgical nonsurgical treatment options.? Understanding risk of surgery pt agrees to proceed with surgical intervention.? All questions have been answered at this time.? Patient elects proceed with surgery and consent obtained in office. MR/MR shoulder LT wo con* [id number] IMPRESSION: Images are somewhat limited due to motion 1. Moderate arthritis AC joint with mild downsloping acromion. Impingement distal supraspinatus. Chronic thinning of the supraspinatus with tendinopathy. 2. Rotator cuff is otherwise intact. 3. Small biceps tendon appears intact within the bicipital groove. Tiny intra- articular biceps tendon. 4. Advanced degenerative narrowing of the glenohumeral articulation. 5. No bone marrow edema in the humerus or glenoid. Procedure: Patient seen evaluated in the preoperative holding area.? Consent reviewed and signed with patient.? Once again reviewed patient's MRI results as well as? planned surgical intervention.? Correct extremity marked.? Patient seen evaluated by anesthesia department received regional anesthesia.? Once ready for surgery was taken back to the operative suite.? Patient then subsequently underwent anesthesia per the anesthesia department was transported onto the OR table.? Patient was then placed into a lateral decubitus position with a beanbag and was appropriately secured to the bed.? All bony prominences well-padded.? Patient then had the Left upper extremity was then prepped and draped in standard orthopedic fashion.? Patient received appropriate preoperative antibiotics.? Final timeout performed. The Left upper extremity was then held in hanging from traction utilizing sterile technique.? Next started with standard diagnostic and surgical arthroscopy with posterior portal position introduced arthroscope into the glenohumeral joint.? Visualized the glenohumeral joint I then introduced a spinal needle within the rotator cuff interval to confirm appropriate anterior portal placement.? Once this was confirmed I then made my small incision and then introduced my arthroscopic shaver into the glenohumeral joint.? After flushing the joint fluid, was clearly evident patient had biceps tendon tearing as well as Superior labral tear. Patient had appreciable unstable biceps anchor most pronounced in the superior labrum. Given there appears to be healthy intra-articular tendon plan was for an intra-articular biceps tenodesis at the superior portion as it enters the intertubercular groove. Thermal wand introduced into the rotator interval. I then release of the rotator interval to have appropriate visualization and the ability to perform biceps tenodesis. At this point I established a purple passport cannula which was introduced. Next I performed an Arthrex loop and tap biceps tenodesis. Passer was then made around the tendon luggage tag stitch around and then thru the tendon and around twice I then utilized a thermal wand to release the biceps tendon at the anchor to perform with tenotomy. I then loaded with suture onto an Arthrex 4.75 swivel lock suture anchor. A punch was then placed in appropriate position at the entry point into the intertubercular groove just superior to the subscapularis tendon. Punch was then introduced to the appropriate depth. The suture loaded on the swivel lock was then advanced held under appropriate tension and shoulder lock anchor was then advanced and had excellent fixation. Excess suture was then cut biceps tenodesis was complete. I then utilized a thermal wand to seal the edges of the superior labrum. Next I evaluated the subscapularis tendon which was intact and no evidence of tear. ?Next there was significant labral tearing at biceps anchor and circumferential.? ? I then subsequently utilized a a arthroscopic shaver and thermal wand to perform a labral debridement.? This point time I then visualized the glenohumeral joint.? The glenohumeral joint was found to have grade 1-2? chondromalacia throughout.? Infrapatellar pouch was free of loose bodies from viewing the posterior portal.? Next a visualized the rotator cuff superiorly and there was no tear with negative escape bubble sign. I utilized a spinal needle to chun this location.? ?This completed my work within the glenohumeral joint all fluid was suctioned free of the joint.? ?Next I reintroduced the arthroscope posteriorly.? And went to the subacromial space.? I established my lateral working portal.? Thermal wand was then introduced laterally and then I subsequently performed extensive bursectomy of the subacromial space.? Patient had a large anterior bone spur.? At this point time I proceeded with my AC joint resection thermal wand was used and track to the anterior edge of the acromion and then tracked all the way to the AC joint.? Once identified the AC joint this was very arthritic in nature.? Thermal wand was placed anteriorly to establish appropriate plane for AC joint resection.? Once appropriate margins and anterior inferior and anterior capsule was released I then introduced arthroscopic shaver and a bur and performed AC joint resection of both the acromion to cope plane at the AC joint and a distal clavicle r esection was then performed totaling 1 cm in size and was confirmed.? This completed my AC joint resection and I then introduced the arthroscopic shaver laterally while continuing to view posteriorly.? I then performed an acromioplasty to complete my subacromial decompression. Next I then subsequently evaluated the rotator cuff from the posterior portal as well as the lateral portal and there was no evidence of rotator cuff tear. ?Next I then introduced the arthroscopic shaver posteriorly to complete my subacromial decompression appropriate complaining all the way up to the lateral edge of the acromion.? This completed the surgery.? All fluid was suctioned from the?shoulder.? All instruments were removed.? The lateral incision was then closed with nylon stitches.? As well as the portal sites closed with portal nylon stitches.? Xeroform 4 x 4's ABD and tape was then applied to the Left?shoulder?and was placed into a?shoulder?abduction pillow sling for bicep tenodesis protocol.? Patient was then awakened from anesthesia and then taken back to PACU in stable condition.? Patient tolerated procedure without any issues. Disposition: Patient taken back in stable condition recovering well.? Dressings on in place clean dry and intact.? Will be nonweightbearing to the Left upper extremity.? Follow biceps tenodesis protocol.? Patient to follow-up with me in the office in 2 weeks.? Patient will receive appropriate discharge instruction as well as pain medication postoperatively.? All questions answered.? We will contact the office for any questions or concerns.
--- NOTE | 2023-11-28 09:03 | PM.PACU ---
PACU note Narrative: Patient is a 63-year-old female just over left shoulder arthroscopy. Patient transferred to PACU in stable condition. Pain is well controlled. shoulder Dressing on , dry and in place. Patient's operative arm is in a shoulder immobilizer. Patient's fingers are warm with good perfusion. Normal cap refill under 2 seconds. Unable to assess further range of motion, motor or sensory function due to residual anesthesia. Exam: unarousable Disposition: discharged
[2023-11-28] MEDS: ipratropium-albuterol 3 mL Neb ×2 (09:08→09:09)
--- NOTE | 2023-11-28 10:25 | ANE.PACU2 ---
Inpatient post-anesthesia follow up: Airway intact: Yes Vital signs: Temperature 98 F Pulse Rate 94 Respiratory Rate 18 Blood Pressure 112/70 Pulse Oximetry 95 Oxygen Delivery Me thod Room Air Oxygen Flow Rate 3 Fraction of Inspir ed Oxygen Hydration adequate: Yes Nausea and vomiting: No Pain level: 1 Mental status: Baseline
== END 2023-11-28 10:25 | disposition home or self-care (01) ==
PROVIDERS: PCP Nurse Practitioner Family; Visit Provider Student in an Organized Health Care Education/Training Program
PROC: (CPT 29805; principal; 2023-11-28 07:00)
PROC: (CPT 29826; 2023-11-28 07:00)
PROC: 0RSH0ZZ Reposition Left Acromioclavicular Joint, Open Approach (ICD-10-PCS; CPT 29822; 2023-11-28 07:00)
PROC: (CPT 23430; 2023-11-28 07:00)
DX: S43.432A Superior glenoid labrum lesion of left shoulder, initial encounter (principal); X58.XXXA Exposure to other specified factors, initial encounter; M19.012 Primary osteoarthritis, left shoulder; M75.42 Impingement syndrome of left shoulder; I25.10 Atherosclerotic heart disease of native coronary artery without angina pectoris; I10 Essential (primary) hypertension; I25.2 Old myocardial infarction; E11.9 Type 2 diabetes mellitus without complications; E78.5 Hyperlipidemia, unspecified; F17.210 Nicotine dependence, cigarettes, uncomplicated
CPT/HCPCS: 29822; 29824; 29826; 29828; 36416; 82962; C1713; J0131; J0690; J1100; J1885; J2405; J2704; J2710; J2795; J3010; J3490; J7030

== ENCOUNTER 2023-12-23 18:13 | Emergency (ER) | payer BC, MEDICAID, SELFPAY ==
[2023-12-23 18:41] VITALS: BP 124/69; PULSE 79; RESP 18; TEMP 36.8; O2SAT 97
[2023-12-23 18:46] VITALS: BP 120/72; PULSE 80; RESP 18
[2023-12-23 20:46] VITALS: PULSE 79; RESP 16; O2SAT 98
--- NOTE | 2023-12-23 21:22 | XRR_ITS ---
PROCEDURE INFORMATION: Exam: XR Left Shoulder Exam date and time: 12/23/2023 9:33 PM Age: 63 years old Clinical indication: Left; Prior surgery; Surgery date: <1 month; Patient HX: Lt shoulder pain; [place] pop'; Post op scope x 3 wk TECHNIQUE: Imaging protocol: Radiologic exam of the left shoulder. Views: 2 or more views. COMPARISON: MR shoulder LT wo con* [id number] 10/31/2023 9:35 AM FINDINGS: Bones/joints: No acute fractures or subluxations. Degenerative changes of the acromioclavicular and glenohumeral joint, better visualized on prior MRI October 31, 2023. Soft tissues: Normal. XR/XR shoulder LT min 2V* [id number] IMPRESSION: No acute fractures or subluxations. Degenerative changes of the acromioclavicular and glenohumeral joint, better visualized on prior MRI October 31, 2023.
[2023-12-23] MEDS: ketorolac 10 mg Tablet PO (21:56)
--- NOTE | 2023-12-23 22:17 | W.ED.EXTPRO ---
HPI - Extremity Problem General: Chief complaint: Extremity Injury, Upper Stated complaint: Left [place] Pain Time Seen by Provider: 12/23/23 21:04 History of Present Illness: 63-year-old female who is a little over 3 weeks out from left shoulder surgery. This was a biceps tenodesis and repair. She says that she felt a pop in the top of her shoulder after lifting boxes, and has pain to the top of the shoulder mainly. There is some mid arm pain as well. No significant numbness or tingling. No fever. PFSH ED PFSH: Medical History Tobacco abuse History of diabetes mellitus, type II Hx of primary hypertension Hx of myocardial infarction Arthritis Post-operative hypothyroidism Benign heart murmur PVD (peripheral vascular disease) Hyperlipidemia Iliac artery stenosis, bilateral Tibial artery occlusion, right Blue toe syndrome of right lower extremity Bilateral carotid artery disease Facet arthritis of cervical region Myofascial pain syndrome, cervical Esophageal dysphagia Major depressive disorder Basal cell carcinoma Anemia History of underactive thyroid Family History Father CAD (coronary artery disease) Cancer Hypertension Sister Cancer Mother Diabetes Brother Diabetes Social History Smoking and tobacco/nicotine status: current every day tobacco/nicotine user Quit status (tobacco/nicotine): has quit using Year quit tobacco: 1 year Former quit date comment: september 2022 Second hand smoke exposure: No Alcohol intake: current Alcohol intake frequency: holidays/special occasions only Alcohol type: other Additional social history: pt has smoked 1 to 1/2 packs of cigarettes for 40 years Household members: none Housing: House Marital status: Legally Number of children: 2 Pets and animals: Yes Pets & animals: dog(s) Physical Exam Const: COMMON NORMALS: no acute distress GENERAL APPEARANCE: cooperative; not ill appearing and not frail appearing HENMT: COMMON NORMALS: normocephalic, atraumatic and Normal external nose present HEAD & SCALP: normocephalic and atraumatic FACE & SINUS: normal facial exam and face symmetric NOSE: Normal external nose present Eye: COMMON NORMALS: Equal, round and reactive pupils present and EOMs intact bilaterally PUPIL: Yes Equal, round and reactive pupils present Neck/C-Spine: GENERAL: Yes trachea midline Chest: CHEST: Yes Symmetrical chest wall rise Resp: COMMON NORMALS: normal respiratory effort, No retractions, No use of accessory muscles and clear to auscultation bilaterally AUSCULTATION: clear to auscultation bilaterally Cardio: COMMON NORMALS: regular rate and regular rhythm RATE: regular rate RHYTHM: regular rhythm GI: COMMON NORMALS: Normal to inspection, nondistended, normoactive bowel sounds present Extremity: NARRATIVE EXTREMITY EXAM: Examination of the left upper extremity reveals tenderness over the acromioclavicular joint. There is no deformity. There is no other significant tenderness. No glenohumeral joint effusion is palpated. No evidence of definite biceps tendon rupture. There is pain with range of motion. Neuro: [place] COMA SCALE: document GCS findings [place] coma scale eye opening: Spontaneous [place] coma scale verbal response: Orientated [place] coma scale motor response: Obey commands [place] coma scale total score: 15 SENSORY EXAM: Yes extremities (intact) Psych: COMMON NORMALS: speech normal SPEECH: Yes normal speech Skin: COMMON NORMALS: no rashes or lesions noted GENERAL SKIN EXAM: no rashes or lesions noted Course Vital Signs: Vital signs: Vital Signs Temperature 98.2 F 12/23/23 18:41 Pulse Rate 79 12/23/23 20:46 Respiratory Rate 16 12/23/23 20:46 Blood Pressure 120/72 12/23/23 18:46 Pulse Oximetry 98 12/23/23 20:46 MDM - Extremity (Nontraumatic) Medical Decision Making X-ray is nonacute. There are some degenerative changes of the AC joint, and mild glenohumeral joint degenerative change. Will put her in a sling for comfort, and asked her to follow-up with orthopedics. Lab Data Radiology Impressions Shoulder X-Ray 12/23/23 21:22 IMPRESSION: No acute fractures or subluxations. Degenerative changes of the acromioclavicular and glenohumeral joint, better visualized on prior MRI October 31, 2023. All radiology interpretation(s) finalized by discharge Discharge Plan Discharge Patient Disposition: Home Clinical Impression: Acute shoulder pain Condition: Stable Prescriptions: Continued oxycodone 5 mg tablet 5 mg PO Q4H PRN (Reason: pain) 7 Days Qty: 8 0RF No Action furosemide 20 mg tablet 20 mg PO DAILY PRN (Reason: Edema) dicyclomine 10 mg capsule 10 mg PO QID PRN (Reason: stomach pain) metoprolol succinate 50 mg tablet extended release 24 hr 50 mg PO BEDTIME Trulicity 0.75 mg/0.5 mL pen injector 0.75 mg SUBCUT DIRECTED Rx Instructions: takes this every 7 days pregabalin 100 mg capsule 100 mg PO BEDTIME hydroxyzine HCl 10 mg tablet 10 mg PO QID ibuprofen 800 mg tablet 800 mg PO Q8H PRN (Reason: pain) Qty: 30 1RF baclofen 20 mg tablet 20 mg PO BEDTIME ondansetron 4 mg tablet,disintegrating 4 mg PO Q8H PRN (Reason: Nausea And Vomiting) Nexletol 180 mg tablet 180 mg PO DAILY Xarelto 2.5 mg tablet 2.5 mg PO BID fluoxetine 20 mg capsule 40 mg PO DAILY ezetimibe [Zetia] 10 mg tablet 10 mg PO BEDTIME biotin 10,000 mcg capsule 10,000 mcg PO BEDTIME albuterol (refill) 90 mcg/actuation aerosol 90 mcg inhalation DAILY PRN (Reason: Shortness Of Breath) cholecalciferol (vitamin D3) 25 mcg (1,000 unit) capsule 5,000 unit PO BEDTIME pantoprazole 40 mg tablet,delayed release (DR/EC) 20 mg PO BEDTIME trazodone 150 mg tablet 100 mg PO BEDTIME PRN (Reason: Insomnia) naloxone [Narcan] 4 mg/actuation spray,non-aerosol 4 mg intranasal 2XD PRN (Reason: opoid overdose) (DME) blood-glucose meter [Blood Glucose Monitoring] Kit See Rx Instructions .ROUTE .MEDSUPPLY Qty: 1 0RF Rx Instructions: As directed (DME) Blood Glucose Test Strip See Rx Instructions .Route Qty: 50 2RF Rx Instructions: As directed thyroid (pork) [HEARING CARE PRACTITIONER Thyroid] 90 mg tablet See Rx Instructions .ROUTE .COMPLEX Qty: 30 0RF Dose Instruction: TAKE 90 MG TABLET BY MOUTH IN THE MORNING AND 30 MG TABLET IN THE EVENING Rx Instructions: TAKE 90 MG TABLET BY MOUTH IN THE MORNING AND 30 MG TABLET IN THE EVENING metformin 1,000 mg tablet 1,000 mg PO BEDTIME thyroid (pork) 30 mg tablet 30 mg PO QPM Rx Instructions: take in the evening pt will take 90mg in the morning and 30mg in the evening. tramadol 50 mg tablet 50 mg PO Q6H PRN (Reason: pain) Qty: 20 0RF Discharge Orders: Discharge ED (Routine); Ordered 12/23/23 Ordered By: Ortiz Thurman Referrals: Lavonne Cedeño FNP [Primary Care Provider] - Aldair Luong DO [Physician] - 1-3 days Patient Instructions: Shoulder Pain (ED), Opioid Safety, Pain Management Activity Restrictions/Additional Instructions: No significant abnormalities were found on your x-ray. Anti-inflammatory pain medication can help with pain. You may use pain medication sparingly. Ice, particularly for the next 48 hours. Wear your sling for comfort for the next 48 to 72 hours, but no longer. Call your doctor in the morning for a follow-up appointment. Coding Level of Care Code ED Patient Support Associate for Nathan Montejo
== END 2023-12-23 23:01 | disposition home or self-care (01) ==
PROVIDERS: Emergency Provider Emergency Medicine; PCP Nurse Practitioner Family
DX: M25.512 Pain in left shoulder (principal); Z79.85 Long-term (current) use of injectable non-insulin antidiabetic drugs; Z79.84 Long term (current) use of oral hypoglycemic drugs; Z72.0 Tobacco use; E11.9 Type 2 diabetes mellitus without complications; I10 Essential (primary) hypertension; I25.2 Old myocardial infarction; E78.5 Hyperlipidemia, unspecified
CPT/HCPCS: 73030; 99283

== ENCOUNTER → 2023-12-31 07:54 | Outpatient (BNVA) | payer BC, MEDICAID, SELFPAY | PROVIDERS: PCP Nurse Practitioner Family; Visit Provider Nurse Practitioner Family | DX: E03.9 Hypothyroidism, unspecified (principal) | CPT/HCPCS: 84443 ==

== ENCOUNTER → 2024-01-01 10:30 | Outpatient (BNVA) | payer BC, MEDICAID, SELFPAY | PROVIDERS: PCP Nurse Practitioner Family; Visit Provider Student in an Organized Health Care Education/Training Program | DX: M25.512 Pain in left shoulder (principal); Z98.890 Other specified postprocedural states | CPT/HCPCS: 73030 ==

== ENCOUNTER 2024-01-03 06:00 | Outpatient (RCR) | payer BC, MEDICAID, SELFPAY | END 2024-01-26 23:59 | disposition home or self-care (01) | LOC: MPT 06:00 | PROVIDERS: Visit Provider Student in an Organized Health Care Education/Training Program | DX: Z98.890 Other specified postprocedural states (principal) | CPT/HCPCS: 97110; 97140; 97162; G0283 ==

== ENCOUNTER → 2024-01-03 07:52 | Outpatient (BNVA) | payer BC, MEDICAID, SELFPAY | PROVIDERS: PCP Nurse Practitioner Family; Visit Provider Orthopaedic Surgery | DX: Z98.1 Arthrodesis status (principal) | CPT/HCPCS: 72040 ==

== ENCOUNTER 2024-01-27 06:00 | Outpatient (RCR) | payer BC, MEDICAID, SELFPAY | END 2024-02-25 23:59 | disposition home or self-care (01) | LOC: MPT 06:00 | PROVIDERS: Visit Provider Student in an Organized Health Care Education/Training Program | DX: Z98.890 Other specified postprocedural states (principal) | CPT/HCPCS: 97110; 97140; G0283 ==

== ENCOUNTER 2024-01-29 06:00 | Outpatient (RCR) | payer BC, MEDICAID, SELFPAY | END 2024-02-25 23:59 | disposition home or self-care (01) | LOC: MPT 06:00 | PROVIDERS: Visit Provider Orthopaedic Surgery | DX: Z98.890 Other specified postprocedural states (principal) | CPT/HCPCS: 97110; 97162; G0283 ==

== ENCOUNTER → 2024-02-14 08:00 | Outpatient (BNVA) | payer BC, MEDICAID, SELFPAY | PROVIDERS: PCP Nurse Practitioner Family; Visit Provider Orthopaedic Surgery | DX: M54.50 Low back pain, unspecified (principal) | CPT/HCPCS: 72110 ==

== ENCOUNTER → 2024-03-26 08:14 | Outpatient (BNVA) | payer BC, MEDICAID, SELFPAY | PROVIDERS: PCP Nurse Practitioner Family; Visit Provider Nurse Practitioner Family | DX: E03.9 Hypothyroidism, unspecified (principal); E11.59 Type 2 diabetes mellitus with other circulatory complications | CPT/HCPCS: 80053; 83036; 84439; 84443; 84481 ==

== ENCOUNTER → 2024-04-10 09:18 | Outpatient (BNVA) | payer BC, MEDICAID, SELFPAY | PROVIDERS: PCP Nurse Practitioner Family; Visit Provider Nurse Practitioner Family | DX: E87.5 Hyperkalemia (principal) | CPT/HCPCS: 80053 ==

== ENCOUNTER → 2024-05-13 08:10 | Outpatient (BNVA) | payer BC, MEDICAID, SELFPAY | PROVIDERS: PCP Nurse Practitioner Family; Visit Provider Orthopaedic Surgery | DX: Z98.1 Arthrodesis status (principal) | CPT/HCPCS: 72040 ==

== ENCOUNTER 2024-05-29 10:44 | Outpatient (CLI) | payer BC, MEDICAID, SELFPAY ==
--- NOTE | 2024-05-29 11:00 | MR_ITS ---
WS: [id number] MRI LUMBAR SPINE NONCONTRAST HISTORY: lumbar pain COMPARISON: None available. TECHNIQUE: Sagittal and axial multisequence imaging is submitted. Prior anterior cervical fusion at C3-4. Mild increase in thoracic kyphosis. Normal posterior lumbar alignment. No fractures or marrow edema. Mild disc space narrowing and desiccation. Conus terminates normally at L1-2 disc level. L1-L2: Mild annular disc bulging and facet arthritis. L2-L3: Mild disc bulging with ligamentum flavum and facet arthritis. No stenosis. L3-L4: Mild annular disc bulging with ligamentum flavum and facet arthritis. Mild bilateral foraminal narrowing due to facet joint encroachment. L4-L5: Moderate annular disc bulging encroaching upon the ventral thecal sac and subarticular recesse s. Ligamentum flavum and facet arthritis. Mild central and bilateral subarticular recess encroachment . No high-grade stenosis. L5-S1: Mild annular disc bulging. Central to LEFT paracentral disc protrusion with annular fissure. D isc encroachment upon the ventral thecal sac and subarticular recesses. Greater contact on the LEFT S 1 nerve root. Ligamentum flavum and facet arthritis. Mild central and bilateral subarticular recess a nd foraminal stenosis. MR/MR lumbar spine wo con* [id number] IMPRESSION: 1. L5-S1: Central to LEFT paracentral disc protrusion extends into the subarti cular recesses, LEFT greater than RIGHT. There is disc contact greatest upon th e LEFT S1 nerve root. Lesser contact on the RIGHT S1 nerve root. Mild central, bilateral subarticular recess and foraminal stenosis. 2. L4-5: Mild central and bilateral subarticular recess encroachment. 3. L3-4: Mild bilateral foraminal narrowing.
== END 2024-05-29 10:45 | disposition home or self-care (01) ==
LOC: RAD 10:46
PROVIDERS: PCP Nurse Practitioner Family; Visit Provider Orthopaedic Surgery
DX: M51.27 Other intervertebral disc displacement, lumbosacral region (principal); Z98.1 Arthrodesis status; M48.07 Spinal stenosis, lumbosacral region; M48.061 Spinal stenosis, lumbar region without neurogenic claudication; M40.294 Other kyphosis, thoracic region; M51.369 Other intervertebral disc degeneration, lumbar region without mention of lumbar back pain or lower extremity pain; M47.816 Spondylosis without myelopathy or radiculopathy, lumbar region
CPT/HCPCS: 72148

== ENCOUNTER → 2024-06-30 08:03 | Outpatient (BNVA) | payer BC, MEDICAID, SELFPAY | PROVIDERS: PCP Nurse Practitioner Family; Visit Provider Nurse Practitioner Family | DX: R53.83 Other fatigue (principal); Z12.2 Encounter for screening for malignant neoplasm of respiratory organs | CPT/HCPCS: 80053; 82306; 82310; 83970; 84439; 84443; 85025 ==

== ENCOUNTER 2024-07-18 07:38 | Outpatient (CLI) | payer BC, MEDICAID, SELFPAY ==
--- NOTE | 2024-07-18 08:00 | CT_ITS ---
WS: [id number] LDCT LUNG CANCER SCREENING HISTORY: Z12.2 - Encounter for screening for malignant neoplasm, history of histoplasmosis. TECHNIQUE: Axial imaging performed from the apices to 1 cm below the costophrenic angles. Coronal and sagittal reformats are submitted with axial MIP series. All CT scans at [facility] use at least one of these dose optimization techniques: automated exposure control; mA and/or kV adjustment per patient size (includes targeted exams where dose is matched to clinical indication); or iterative reconstruction. DLP: 73.18 mGy.cm DIvol: Mean CTDIvol: 1.40 (mGy) COMPARISON: None available. Diagnostic quality: Satisfactory Lungs: Marked pulmonary hyperexpansion. Large densely calcified granuloma measuring 1.5 cm RIGHT upper lobe. Benign calcified granuloma medial LEFT upper lobe. Mildly prominent interstitium in the periphery of the lower lung beatty and a few tiny micronodules. 3 mm nodule along the medial RIGHT upper lobe. No endobronchial lesions. No endobronchial lesions. Heart: Normal size heart with no pericardial effusion.. Other findings: Dense coronary artery calcifications. RIGHT hilar calcified lymph nodes. Moderate atherosclerotic plaque within the thoracic aorta. Pulmonary artery is dilated to 3.7 cm. Small hiatal hernia. Hepatic and splenic granulomata. Prior cholecystectomy. No adrenal mass. Advanced supra renal aortic calcifications. Mild increase in thoracic kyphosis. CT/CT lung screening [id number] IMPRESSION: LUNG-RADS: 2-Benign Appearance or Behavior FOLLOW UP: 12 Month: Continue annual screening with LDCT OTHER FINDINGS (S MODIFIER): None.
== END 2024-07-18 07:39 | disposition home or self-care (01) ==
PROVIDERS: PCP Nurse Practitioner Family; Visit Provider Nurse Practitioner Family
DX: Z12.2 Encounter for screening for malignant neoplasm of respiratory organs (principal); Z87.891 Personal history of nicotine dependence; R91.8 Other nonspecific abnormal finding of lung field; J84.10 Pulmonary fibrosis, unspecified; R91.1 Solitary pulmonary nodule; I25.10 Atherosclerotic heart disease of native coronary artery without angina pectoris; R59.0 Localized enlarged lymph nodes; I70.0 Atherosclerosis of aorta; K44.9 Diaphragmatic hernia without obstruction or gangrene; K75.3 Granulomatous hepatitis, not elsewhere classified; D73.89 Other diseases of spleen; Z90.49 Acquired absence of other specified parts of digestive tract; M40.294 Other kyphosis, thoracic region; I28.8 Other diseases of pulmonary vessels
CPT/HCPCS: 71271

== ENCOUNTER 2024-09-01 12:48 | Outpatient (CLI) | payer BC, MEDICAID, SELFPAY ==
--- NOTE | 2024-09-01 14:57 | XR_ITS ---
WS: [id number] Exam: XR sinus min 3V* [id number] Date/Time of Exam: 09/01/2024 3:03 PM Reason For Exam: RECURRENT SINUSITIS/CHRONIC SINUSITIS There is almost total opacification of the RIGHT maxillary sinus. The remaining paranasal sinuses are clear. The sphenoid sinus and mastoid air cells are clear. No fracture or bone destruction. Slight leftward deviation of the nasal septum. XR/XR sinus min 3V* [id number] IMPRESSION: 1. Almost complete opacification of the RIGHT maxillary sinus. The remaining fa cial sinuses were clear.
== END 2024-09-01 12:49 | disposition home or self-care (01) ==
LOC: RAD 12:49
PROVIDERS: PCP Nurse Practitioner Family; Visit Provider Nurse Practitioner Family
DX: J32.0 Chronic maxillary sinusitis (principal)
CPT/HCPCS: 70220

== ENCOUNTER → 2024-09-03 09:20 | Outpatient (BNVA) | payer OTHER, SELFPAY | PROVIDERS: PCP Nurse Practitioner Family; Visit Provider Psychiatry & Neurology Psychiatry | DX: F43.21 Adjustment disorder with depressed mood (principal); F33.2 Major depressive disorder, recurrent severe without psychotic features | CPT/HCPCS: 80061; 83036 ==

== ENCOUNTER → 2024-09-22 11:40 | Outpatient (BNVA) | payer BC, SELFPAY ==
[2024-09-04 16:23] VITALS: BP 121/68; BMI 27.5
== END ==
PROVIDERS: PCP Nurse Practitioner Family; Visit Provider Nurse Practitioner Family
DX: E11.59 Type 2 diabetes mellitus with other circulatory complications (principal); E03.9 Hypothyroidism, unspecified; E78.2 Mixed hyperlipidemia
CPT/HCPCS: 80053; 80061; 82043; 82310; 83036; 83970; 84439; 84443; 84480

== ENCOUNTER → 2024-09-30 09:21 | Outpatient (BNVA) | payer BC, SELFPAY ==
[2024-09-04 16:23] VITALS: BP 121/68; BMI 27.5
== END ==
PROVIDERS: PCP Nurse Practitioner Family; Visit Provider Orthopaedic Surgery
DX: M25.551 Pain in right hip (principal)
CPT/HCPCS: 73502

== ENCOUNTER → 2024-12-16 08:16 | Outpatient (BNVA) | payer BC, MEDICAID, SELFPAY ==
[2024-09-04 16:23] VITALS: BP 121/68; BMI 27.5
== END ==
PROVIDERS: PCP Nurse Practitioner Family; Visit Provider Physician Assistant
DX: M75.32 Calcific tendinitis of left shoulder (principal); Z98.890 Other specified postprocedural states; M75.41 Impingement syndrome of right shoulder
CPT/HCPCS: 73030

== ENCOUNTER → 2025-01-01 08:12 | Outpatient (BNVA) | payer BC, SELFPAY ==
[2024-09-04 16:23] VITALS: BP 121/68; BMI 27.5
== END ==
PROVIDERS: PCP Nurse Practitioner Family; Visit Provider Internal Medicine
DX: E11.59 Type 2 diabetes mellitus with other circulatory complications (principal); E55.9 Vitamin D deficiency, unspecified; E20.9 Hypoparathyroidism, unspecified; E03.9 Hypothyroidism, unspecified
CPT/HCPCS: 80053; 80061; 82043; 82533; 83036; 84439; 84443; 84480

== ENCOUNTER 2025-02-04 07:36 | Oncology outpatient (recurring) (ONCR) | payer BC, MEDICAID, SELFPAY ==
[2024-09-04 16:23] VITALS: BP 121/68; BMI 27.5
== END 2025-02-24 23:59 | disposition home or self-care (01) ==
LOC: ONCMED 07:38
PROVIDERS: PCP Nurse Practitioner Family; Visit Provider Internal Medicine
DX: Z53.9 Procedure and treatment not carried out, unspecified reason (principal)